=== PATIENT | male | born 2000 | race Caucasian/White ===

== ENCOUNTER → 2019-10-08 16:16 | Outpatient (BNVA) | payer OTHER, MEDICAID, SELFPAY | PROVIDERS: Family Provider Family Medicine; PCP Family Medicine; Visit Provider Nurse Practitioner | DX: J02.9 Acute pharyngitis, unspecified (principal); H66.93 Otitis media, unspecified, bilateral | CPT/HCPCS: 87081; 87880 ==

== ENCOUNTER → 2019-10-25 18:17 | Outpatient (BNVA) | payer OTHER, SELFPAY | PROVIDERS: Family Provider Family Medicine; PCP Family Medicine; Visit Provider Nurse Practitioner | DX: J02.9 Acute pharyngitis, unspecified (principal); R50.9 Fever, unspecified; J06.9 Acute upper respiratory infection, unspecified; K52.9 Noninfective gastroenteritis and colitis, unspecified | CPT/HCPCS: 87081; 87804; 87880 ==